=== PATIENT | female | born 1980 | race Two or more races ===

== ENCOUNTER 2018-11-24 19:31 | Emergency (ER) | payer MEDICAID ==
[~2018-11-24] VITALS: Ht 162.6 cm; Wt 54.4 kg
--- NOTE | 2018-11-24 19:40 | NUR ---
PT PRESENTED TO THE ER WITH A C/O ALLERGIC REACTION TO THE RT UPPER ARM AND SHOULDER, RT NECK, AND RT SIDE OF FACE/JAW. PT USED A MEDICATED PATCH THAT WAS "MINT" AND WITHIN 10 MINS PT HAD A RASH/HIVES. PT AMBULATED TO ER 18 WITH A STEADY GAIT. PT'S MOTHER IS AT THE BEDSIDE.
[2018-11-24] MEDS ORDERED: methylPREDNISolone SOD SUCC 125 MG/2ML VIAL IV ONE (20:30)
[2018-11-24] MEDS ORDERED: IV NS 0.9% 1,000 ML BAG IV ONE (20:30)
[2018-11-24] MEDS ORDERED: FAMOTIDINE/PF INJ 20 MG/2 ML VIAL IV ONE ×2 (20:30→20:38)
[2018-11-24] MEDS ORDERED: diphenhydrAMINE HCL 50 MG/ML VIAL ONE (20:38)
[2018-11-24] MEDS ORDERED: methylPREDNISolone SOD SUCC 125 MG/2ML VIAL ONE (20:38)
[2018-11-24] MEDS: diphenhydrAMINE HCL 50 MG/ML VIAL IV ONE ×2 (20:44→20:48)
--- NOTE | 2018-11-24 22:18 | NUR ---
Patient discharged to home in stable condition. Written and verbal after care instructions given. Patient verbalizes understanding of instruction AND RX. PT AMBULATED OUT WITH A STEADY GAIT. VSS.
[2018-11-24 22:27] VITALS: BP 136/87
== END 2018-11-24 22:18 | disposition home or self-care (01) ==
LOC: ER 19:34
DX: L24.89 Irritant contact dermatitis due to other agents (principal)
CPT/HCPCS: 96374; 96375; 99283; J1200; J2930; J3490; J7030

== ENCOUNTER 2018-12-02 18:59 | Emergency (ER) | payer MEDICAID ==
[~2018-12-02] VITALS: Ht 165.1 cm; Wt 54.4 kg
[2018-12-02 19:09] VITALS: BP 144/83
== END 2018-12-02 19:38 | disposition home or self-care (01) ==
LOC: ER 19:10
DX: L50.0 Allergic urticaria (principal)